=== PATIENT | male | born 1970 | race Caucasian/White ===

== ENCOUNTER 2016-12-30 13:11 | Observation (INO) | payer SELFPAY ==
[2016-12-30] MEDS ORDERED: ASPIRIN 81 MG TABLET, CHEWABLE PO ONE (13:26)
--- NOTE | 2016-12-30 13:26 | ER Document Report ---
ED Medical Screen (RME) - General Stated Complaint: CHEST PAIN Notes: 46yo male c/o left sided chest pain intermittant x 4 days. pain worse today. stabbing, nonradiating. mild shortness of breath and nausea. no previous cardiac hx, no HTN, no DM. + smoker 2ppd x 10 yrs.
[2016-12-30] MEDS ORDERED: NORMAL SALINE 1000 ML 1,000 ML IV ONE ×2 (14:11→14:54)
[2016-12-30] MEDS ORDERED: NITROGLYCERIN 2% OINTMENT 1 GM PACKET TP ONE (14:43)
--- NOTE | 2016-12-30 14:43 | ER Document Report ---
ED General - General Chief Complaint: Chest Pain Stated Complaint: CHEST PAIN TRAVEL OUTSIDE OF THE [place] IN LAST 30 DAYS: No - HPI Patient complains to provider of: chest pain Notes: Patient coming in for evaluation of chest pain. 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 Patient states left-sided chest pain no radiation nausea no vomiting. No diaphoresis. Upon evaluation the patient patient did have an episode where became very diaphoretic stated the pain has increased. Patient also became very pale then time. Repeat EKG was performed at a time. Please see force for EKG details. Initial EKG show no signs of STEMI along with second EKG. Patient otherwise states smokes 2 packs a day does smoke marijuana no other illicit drugs drinks alcohol occasionally states family history mother of heart condition at age 53 which she is unaware of. Patient denies any other past medical history does not take any medication allergies knee medication why states patient may have hypertension as that his blood pressure has been higher last few days she has been monitoring this at home. Past Medical History - Social History Smoking Status: Current Every Day Smoker Chew tobacco use (# tins/day): No Frequency of alcohol use: Occasional Drug Abuse: None Family History: Other Patient has suicidal ideation: No Patient has homicidal ideation: No Renal/ Medical History: Denies: Hx Peritoneal Dialysis - Immunizations Hx Diphtheria, Pertussis, Tetanus Vaccination: Yes Review of Systems - Review of Systems Constitutional: No symptoms reported EENT: No symptoms reported Cardiovascular: Chest pain Respiratory: No symptoms reported Gastrointestinal: No symptoms reported Genitourinary: No symptoms reported Male Genitourinary: No symptoms reported Musculoskeletal: No symptoms reported Skin: No symptoms reported Hematologic/Lymphatic: No symptoms reported Neurological/Psychological: No symptoms reported -: Yes All other systems reviewed and negative Physical Exam - Vital signs Vitals: Temp Pulse Resp BP Pulse Ox 97.5 F 97 20 162/105 H 96 12/30/16 13:25 12/30/16 13:25 12/30/16 13:25 12/30/16 13:25 12/30/16 13:25 Interpretation: Normal - General General appearance: Appears well, Alert - HEENT Head: Normocephalic, Atraumatic Eyes: Normal Pupils: PERRL - Respiratory Respiratory status: No respiratory distress Chest status: Nontender Breath sounds: Normal Chest palpation: Normal - Cardiovascular Rhythm: Regular Heart sounds: Normal auscultation Murmur: No - Abdominal Inspection: Normal Distension: No distension Bowel sounds: Normal Tenderness: Nontender Organomegaly: No organomegaly - Back Back: Normal, Nontender - Extremities General upper extremity: Normal inspection, Nontender, Normal color, Normal ROM , Normal temperature General lower extremity: Normal inspection, Nontender, Normal color, Normal ROM , Normal temperature, Normal weight bearing. No: Luc's sign - Neurological Neuro grossly intact: Yes Cognition: Normal Orientation: AAOx4 [place] Coma Scale Eye Opening: Spontaneous [place]isa Coma Scale Verbal: Oriented [place] Coma Scale Motor: Obeys Commands Delisa Coma Scale Total: 15 Speech: Normal Motor strength normal: LUE, RUE, LLE, RLE Sensory: Normal - Psychological Associated symptoms: Normal affect, Normal mood - Skin Skin Temperature: Warm Skin Moisture: Dry Skin Color: Normal Course - Re-evaluation Re-evalutation: 12/30/16 15:45 Patient coming in for chest pain. Patient did become diaphoretic by status arrival. Initial EKG did show since ST segment elevation in V2 no other reversible changes. Patient does have changes in EKG consistent with LVH. More likely this ST segment elevation in V2 is related to LVH. Repeat EKG with patient explaining worsening pain and became diaphoretic also showed no signs of STEMI. Patient had lab work chest x-ray performed no abnormality seen. Because the patient's presentation undiagnosed hypertension diaphoresis here in the ER and family history discussed with hospitalist will admit patient for chest pain rule out. - Vital Signs Vital signs: Temp Pulse Resp BP Pulse Ox 97.5 F 97 20 162/105 H 96 12/30/16 13:25 12/30/16 13:25 12/30/16 13:25 12/30/16 13:25 12/30/16 13:25 - Laboratory Result Diagrams: 12/30/16 14:35 12/30/16 14:35 Laboratory results interpreted by me: 12/30/16 14:35 Glucose 152 H Discharge - Discharge Clinical Impression: Chest pain, rule out acute myocardial infarction Condition: Good Disposition: ADMITTED OBSERVATION Admitting Provider: Hospitalist - [facility] Unit Admitted: Telemetry
[2016-12-30 14:52] LABS: ABSOLUTE BASOPHILS # (AUTO) 0.1 10^3/uL (0.0-0.2); ABSOLUTE EOSINOPHILS # (AUTO) 0.1 10^3/uL (0.0-0.6); ABSOLUTE MONOCYTES (AUTO) 0.8 10^3/uL (0.1-1.4); BASOPHILS % (AUTO) 0.9 % (0-2); EOSINOPHILS % (AUTO) 1.3 % (0-6); HEMATOCRIT 44.6 % (37.9-51.0); HEMOGLOBIN 15.5 g/dL (13.5-17.0); HGB HCT DIFFERENCE 1.9; LYMPHOCYTES % (AUTO) 30.3 % (13-45); MEAN CORPUSCULAR HEMOGLOBIN 31.1 pg (27.0-33.4); MEAN CORPUSCULAR HGB CONC 34.7 g/dL (32.0-36.0); MEAN CORPUSCULAR VOLUME 90 fl (80-97); MONOCYTES % (AUTO) 7.6 % (3-13); RED BLOOD COUNT 4.98 10^6/uL (4.35-5.55); RED CELL DISTRIBUTION WIDTH 12.4 % (11.5-14.0); SEGMENTED NEUTROPHILS % (AUTO) 59.9 % (42-78); WHITE BLOOD COUNT 10.1 10^3/uL (4.0-10.5)
[2016-12-30 15:15] LABS: ALANINE AMINOTRANSFERASE 39 U/L (21-72); ALBUMIN 3.8 g/dL (3.5-5.0); ALKALINE PHOSPHATASE 86 U/L (38-126); ANION GAP 11 (5-19); ASPARTATE AMINO TRANSFERASE 24 U/L (17-59); BILIRUBIN,TOTAL 0.7 mg/dL (0.2-1.3); BLOOD UREA NITROGEN 14 mg/dL (7-20); CALCIUM 9.5 mg/dL (8.4-10.2); CARBON DIOXIDE 23 mmol/L (22-30); CHLORIDE 106 mmol/L (98-107); CREATINE KINASE 64 U/L (55-170); CREATININE RESULT 0.83 mg/dL (0.52-1.25); GLUCOSE 152 mg/dL (75-110); LIPASE 45.3 U/L (23-300); MAGNESIUM 1.7 mg/dL (1.6-2.3); POTASSIUM 4.2 mmol/L (3.6-5.0); SODIUM 140.3 mmol/L (137-145)
[2016-12-30 15:25] LABS: CREATINE KINASE MB 0.85 ng/mL (<4.55)
[2016-12-30 15:26] LABS: TROPONIN I < 0.012 ng/mL
[2016-12-30] MEDS ORDERED: MORPHINE SULFATE 10 MG/ML INJ IV ONE (15:28)
[2016-12-30] MEDS ORDERED: ONDANSETRON HCL INJ/PF 4 MG/2 ML SDV IV ONE (15:28)
[2016-12-30] MEDS ORDERED: METOPROLOL TARTRATE PF/INJ 5 MG/5 ML SDV IV ONE (15:58)
[2016-12-30] MEDS ORDERED: ONDANSETRON HCL INJ/PF 4 MG/2 ML SDV IV PRN (16:03)
[2016-12-30] MEDS ORDERED: MAG HYDROX/AL HYDROX/SIMETH SUSP 30 ML UDCUP PO PRN (16:03)
[2016-12-30] MEDS ORDERED: MORPHINE SULFATE 10 MG/ML INJ IV PRN (16:03)
[2016-12-30] MEDS ORDERED: NITROGLYCERIN 0.4 MG/TAB 25 TAB/BOTTLE SL PRN (16:03)
[2016-12-30] MEDS ORDERED: HYDRALAZINE HCL INJ/PF 20 MG/1 ML SDV IV PRN (16:12)
--- NOTE | 2016-12-30 16:32 | PDOC H&P ---
History of Present Illness Admission Date/PCP: 12/30/2016 Patient complains of: Left-sided chest pain History of Present Illness: JUD DAWSON is a 46 year old male presents to the emergency department from work in [place] with complaints of left-sided chest pain since Wednesday. His first episode occurred [place] Wednesday and is described as sharp stabbing pain under his left breast that was somewhat improved with naproxen followed by a BC Powder but not relieved. He notes the pain is sometimes positional but denies any injury or strain in spite of the type work he does. Today it became much more intense and radiated into his left arm and neck with associated diaphoresis, dyspnea, palpitations, nausea or vomiting, lightheadedness, numbness and tingling in the tips of his toes and fingers. He gets some relief from his symptoms with sublingual nitroglycerin and was given aspirin upon his arrival in the emergency department. Evaluation shows him to be quite hypertensive with systolic pressures greater than 170 and diastolic pressures greater than 110 and as high as 130s. He still had anything like this before. He does struggle with chronic heartburn but takes nothing for it, has never sought medical attention before. Evaluation so far as been reassuring with a negative cardiac enzyme, his initial EKG showed ST change in lead V2 that resolved on repeat EKG. His chest x-ray shows no widening of the mediastinum in no acute pathologic process. His cardiac risk factors include: Apparently undiagnosed hypertension, age, gender, strong family history with the of his mother at age of 53 from some problem with her heart, heavy tobacco use with 2 pack-a-day habit and no aspirin use. We were asked to admit the patient for further evaluation and management. Past Medical History Medical History: None - But he never sought medical attention even routine screening Past Surgical History Past Surgical History: Reports: Appendectomy Social History Information Source: Patient Lives with: Family Smoking Status: Current Every Day Smoker Cigarettes Packs Per Day: 2 Frequency of Alcohol Use: Occasional - Drinks a sixpack a week Hx Recreational Drug Use: Yes Drugs: Marijuana Hx Prescription Drug Abuse: No - Advance Directive Resuscitation Status: Full Code Family History Family History: CAD, Other Parental Family History Reviewed: Yes Children Family History Reviewed: Yes Sibling(s) Family History Reviewed.: Yes Medication/Allergy Home Medications: No Home Medications 12/30/16 Allergies/Adverse Reactions: No Known Allergies Allergy (Unverified 12/30/16 16:21) Review of Systems Constitutional: ABSENT: chills, fever(s), headache(s), weight gain, weight loss Eyes: ABSENT: visual disturbances Ears: ABSENT: hearing changes Cardiovascular: PRESENT: as per HPI, chest pain, palpitations. ABSENT: dyspnea on exertion, edema, orthropnea Respiratory: PRESENT: dyspnea. ABSENT: cough, hemoptysis Gastrointestinal: PRESENT: heartburn, nausea, vomiting. ABSENT: abdominal pain , constipation, diarrhea, hematemesis, hematochezia Genitourinary: ABSENT: dysuria, hematuria Musculoskeletal: ABSENT: joint swelling Integumentary: ABSENT: rash, wounds Neurological: PRESENT: dizziness, paresthesias. ABSENT: abnormal gait, abnormal speech, confusion, focal weakness, syncope Psychiatric: ABSENT: anxiety, depression Endocrine: ABSENT: cold intolerance, heat intolerance, polydipsia, polyuria Hematologic/Lymphatic: ABSENT: easy bleeding, easy bruising Physical Exam Vital Signs: Temp Pulse Resp BP Pulse Ox 97.5 F 97 20 162/105 H 96 12/30/16 13:25 12/30/16 13:25 12/30/16 13:25 12/30/16 13:25 12/30/16 13:25 PHYSICAL EXAM GENERAL: NAD; well developed, well nourished; mild obese; alert and oriented to person, place, time, situation HEENT: normocephalic, atraumatic; EOMI, PERRLA, no conjunctival injection, no scleral icterus; oral mucosa dry, neck supple, no LAD, normal ROM; thyroid not enlarged RESPIRATORY: no accessory muscle use, no increased WOB, good air entry bilaterally; no wheezes, rales, rhonchi; no inspiratory crackles CARDIO: no JVD; RRR; no systolic murmur; no tachycardia VASCULAR: no carotid bruit; no abdominal bruit; no pallor; 2+ radial, DP pulse ; normal capillary refill GI: soft; nondistended; normal bowel sounds; no hepato spleno megaly; no rebound, rigidity, guarding; nontender NEURO: normal patella reflexes; normal sensation; normal motor function; MSK: 5/5 strength; normal ROM hips; ambulatory without assistance; no tenderness EXTREMITIES: no calf tender; no palpable cords in calf; no clubbing, cyanosis , pedal edema PSYCH: normal affect, normal mood SKIN: warm; moist; no petechiae; no telengectasias; no jaundice; no rash Results Laboratory Results: 12/30/16 14:35 12/30/16 14:35 12/30/16 12/30/16 14:35 14:35 WBC 10.1 RBC 4.98 Hgb 15.5 Hct 44.6 MCV 90 MCH 31.1 MCHC 34.7 RDW 12.4 Plt Count 240 Seg Neutrophils % 59.9 Lymphocytes % 30.3 Monocytes % 7.6 Eosinophils % 1.3 Basophils % 0.9 Absolute Neutrophils 6.0 Absolute Lymphocytes 3.0 Absolute Monocytes 0.8 Absolute Eosinophils 0.1 Absolute Basophils 0.1 Sodium 140.3 Potassium 4.2 Chloride 106 Carbon Dioxide 23 Anion Gap 11 BUN 14 Creatinine 0.83 Est GFR ( Amer) > 60 Est GFR (Non-Af Amer) > 60 Glucose 152 H Calcium 9.5 Magnesium 1.7 Total Bilirubin 0.7 AST 24 ALT 39 Alkaline Phosphatase 86 Total Protein 7.0 Albumin 3.8 Lipase 45.3 12/30/16 12/30/16 14:35 14:35 Creatine Kinase 64 CK-MB (CK-2) 0.85 Troponin I < 0.012 Labs reviewed, hyperglycemia noted no significant findings. EKG Comments: EKG shows a normal sinus rhythm with a rate of 94, corrected QT interval of 426 , and ST elevation of 1 mm in lead V2 only, no Q waves no concomitant ST depression no other T-wave abnormalities. Impressions: Chest X-Ray 12/30/16 13:27 IMPRESSION: NO ACUTE RADIOGRAPHIC FINDING IN THE CHEST. Status: Image reviewed by me - I see no acute cardiopulmonary pathology including no widening of the mediastinum. Assessment & Plan - Diagnosis (1) Chest pain, rule out acute myocardial infarction Is this a current diagnosis for this admission?: YesPlan: Patient will be admitted to medical floor with telemetry for cardiac rule out with serial cardiac enzymes, repeat EKG. Assuming enzymes are negative for acute ischemia he will undergo pharmacologic stress testing in the morning given his significant risk factors and CAYETANO score of 3. Continue empiric aspirin and start empiric statin. Hold on scheduled beta eri anticipating pharmacologic stress testing in the morning. (2) Accelerated hypertension Is this a current diagnosis for this admission?: YesPlan: The low-dose Lopressor IV 1 now, given dose of morphine to alleviate the patient's persistent pain which should help as well. Start him on WINNIE inhibitor and amlodipine anticipating discharge home on those medications as well. As needed hydralazine for systolic pressures greater than 190 or diastolic pressure current 100. Check TSH in the morning and lipid panel. (3) Tobacco dependence Is this a current diagnosis for this admission?: YesPlan: Tobacco cessation counseling. Hold nicotine replacement due to severity of his hypertension. (4) Hyperglycemia Is this a current diagnosis for this admission?: YesPlan: Check hemoglobin A1c in the morning. Possibly stress related. No family history of diabetes. - Time Time Spent: 50 to 70 Minutes Medications reviewed and adjusted accordingly: Yes Anticipated discharge: Home Within: within 24 hours
[2016-12-30] MEDS: LANSOPRAZOLE 30 MG TAB.RAP.DR PO SCH (17:58)
[2016-12-30] MEDS ORDERED: LISINOPRIL 10 MG TABLET PO ONE (18:00)
[2016-12-30] MEDS ORDERED: AMLODIPINE BESYLATE 10 MG TABLET PO ONE (18:00)
--- NOTE | 2016-12-30 19:35 | PDOC CONSULTATION ---
Consultation Consult Date: 12/30/16 Attending physician:: YING DE LA CRUZ Consult reason:: Chest pain History of Present Illness Admission Date/PCP: 12/30/16 18:04 Patient complains of: Chest pain History of Present Illness: JUD DAWSON is a 46 year old male presents to the emergency department from work in [place] with complaints of left-sided chest pain since Wednesday. His [place] and is described as sharp stabbing pain under his left breast that was somewhat improved with naproxen followed by a BC Powder but not relieved. He notes the pain is sometimes positional but denies any injury or strain in spite of the type work he does. Today it became much more intense and radiated into his left arm and neck with associated diaphoresis, dyspnea, palpitations, nausea or vomiting, lightheadedness, numbness and tingling in the tips of his toes and fingers. He gets some relief from his symptoms with sublingual nitroglycerin and was given aspirin upon his arrival in the emergency department. Evaluation shows him to be quite hypertensive with systolic pressures greater than 170 and diastolic pressures greater than 110 and as high as 130s. He still had anything like this before. He does struggle with chronic heartburn but takes nothing for it, has never sought medical attention before. Evaluation so far as been reassuring with a negative cardiac enzyme, his initial EKG showed ST change in lead V2 that resolved on repeat EKG. His chest x-ray shows no widening of the mediastinum in no acute pathologic process. His cardiac risk factors include: Apparently undiagnosed hypertension, age, gender, strong family history with the of his mother at age of 53 from some problem with her heart, heavy tobacco use with 2 pack-a-day habit and no aspirin use. We were asked to admit the patient for further evaluation and management. This history was confirmed and supplemented. Patient does give history of heavy smoking. He does also give history of leg cramps when he walks. He denied any prior history of heart problems Past Medical History Cardiac Medical History: Reports: None - Patient has not seen a physician in quite some time. Past Surgical History Past Surgical History: Reports: Appendectomy Social History Information Source: Patient Lives with: Family Smoking Status: Current Every Day Smoker Cigarettes Packs Per Day: 2 Frequency of Alcohol Use: Occasional - Drinks a sixpack a week Hx Recreational Drug Use: Yes Drugs: Marijuana Hx Prescription Drug Abuse: No - Advance Directive Resuscitation Status: Full Code Surrogate healthcare decision maker:: Patient's Family History Family History: CAD - Positive for premature CAD in mother., Other Parental Family History Reviewed: Yes Children Family History Reviewed: Yes Sibling(s) Family History Reviewed.: Yes Medication/Allergy Home Medications: No Home Medications 12/30/16 Allergies/Adverse Reactions: No Known Allergies Allergy (Unverified 12/30/16 16:21) Review of Systems Review of Systems: Please see history of present illness and past medical history as wall. Constitutional: No fever or chills reported. Head : No recent chronic headaches, recent head injury. Eyes: No recent eye pain, diplopia, redness, discharge, acute visual changes. Ears: No recent chronic ear pain, acute hearing loss, ear discharge. Oral cavity: No recent ulcerations, bleeding, oral cavity discomfort. Neck: No recent acute neck pain reported. Hematologic: No recent easy bruising or bleeding or hematologic malignancy reported. Lymphatic: No recent lymphatic malignancy, chronic lymphadenopathy reported yet Cardiovascular system review: See history of present illness. Respiratory system review: No recent chronic cough, hemoptysis, blood clots in the lungs reported. Mild Shortness of breath on exertion Gastrointestinal system review: Negative for any recent acute or chronic abdominal pain, hematemesis, melena, recent change in bowel habits. Genitourinary system review: No recent acute or chronic hematuria, flank pain, UTI etc. reported. Skin system review: Negative for any recent abnormal bruising, no rash, no pruritus reported. Neurologic: No prior history of strokes, mini strokes, seizure disorder. Psychologic: No history of major psychosis or depression reported. Musculoskeletal: Minor aches and pains reported. No acute joint swelling reported. Endocrine: No recent polyuria, polydipsia, recent heat or cold intolerance. Physical Exam Vital Signs: Temp Pulse Resp BP Pulse Ox 97.5 F 97 15 138/94 H 95 12/30/16 13:25 12/30/16 13:25 12/30/16 17:50 12/30/16 17:50 12/30/16 17:50 Exam: GENERAL: well-nourished and in no acute distress. Alert and oriented x3 HEAD: Atraumatic, normocephalic. EYES: Pupils equal round and reactive to light, extraocular movements intact, sclera anicteric, conjunctiva are normal. ENT: TMs normal, nares patent, oropharynx clear without exudates. Moist mucous membranes. No oral ulcerations or bleeding gums noted NECK: supple without lymphadenopathy. Trachea is central. No cervical or axillary lymphadenopathy noted. Carotids are 2+, JVD WNL LUNGS: Respiration seems nonlabored, no significant accessory muscle action noted. Breath sounds clear to auscultation bilaterally and equal noted. No wheezes rales or rhonchi noted. No significant dullness noted on percussion. CHEST: Palpation of the chest wall shows no significant chest wall tenderness. No other significant abnormalities noted. HEART: [place] [employer], No PSH, 1/6 NARA aortic area, 1/6 king systolic murmur mitral area, no rubs, no gallops. ABDOMEN: Soft, no significant tenderness appreciated, normoactive bowel sounds. No guarding, no rebound. No rigidity noted . No masses appreciated. EXTREMITIES: Pedal pulses are 1-2+, no calf tenderness noted. No clubbing or cyanosis.trace to 1+ pedal edema noted NEUROLOGICAL: Focused neurological exam showed no significant neurologic deficit. Normal speech, no focal weakness appreciated. PSYCH: Normal mood, normal affect. Judgment and insight within normal limits. SKIN: No significant ecchymosis, rash, ulcerations or signs of pruritus noted. MUSCULOSKELETAL EXAM: No significant joint swelling noted. Results EKG Comments: Sinus rhythm, minimal ST elevation in V1 and V2 consistent with early repolarization changes. Impressions: Chest X-Ray 12/30/16 13:27 IMPRESSION: NO ACUTE RADIOGRAPHIC FINDING IN THE CHEST. Assessment & Plan - Diagnosis (1) Accelerated hypertension Is this a current diagnosis for this admission?: Yes (2) Chest pain, rule out acute myocardial infarction Is this a current diagnosis for this admission?: Yes (3) Hyperglycemia Is this a current diagnosis for this admission?: Yes (4) Tobacco dependence Is this a current diagnosis for this admission?: Yes - Notes Notes: Chest pain with some borderline EKG changes. Initial cardiac enzymes are negative. At this point will obtain a CTA of the chest to rule out other serious causes of chest pain such as pulmonary embolism, aortic dissection, ulcerations etc. recommend empiric proton pump inhibitor. Agree with cardiac enzymes. Will order a 2-D echo. Nuclear stress test already ordered. Agree with current management plans declined by the hospitalist including management of hypertension, other diagnosis listed. Hypertension: BP goal long-term should be less than 135/85. WINNIE inhibitor/ARB preferred. Hyperglycemia: We will leave management to hospitalist. Tobacco abuse: Discussed smoking cessation and benefits of smoking cessation with the patient. Patient advised on smoking cessation. - Time Time Spent: 30 to 50 Minutes - CODE STATUS was discussed, patient remains full code. Surrogate decision-maker ration's . Multiple medical problems were addressed.More than 50% of the time spent coordinating care, discussing management plans with involved caregivers. Management plans discussed with involved personnels. Medical decision making was of moderate complexity.
[2016-12-30 21:51] LABS: APPEARANCE,URINE SLIGHTLY-CLOUDY; BILIRUBIN,URINE NEGATIVE (NEGATIVE); GLUCOSE, URINE 50 mg/dL (NEGATIVE); KETONES,URINE NEGATIVE (NEGATIVE); LEUKOCYTE ESTERASE,URINE TRACE (NEGATIVE); NITRITE,URINE NEGATIVE (NEGATIVE); PROTEIN,URINE 100 mg/dL (NEGATIVE); URINE SPECIFIC GRAVITY 1.028; UROBILINOGEN,URINE NEGATIVE mg/dL (<2.0)
[2016-12-30] MEDS ORDERED: ATORVASTATIN CALCIUM 40 MG TABLET PO SCH (22:00)
[2016-12-30 22:02] LABS: URINE BARBITURATES SCREEN NEGATIVE; URINE METHADONE SCREEN NEGATIVE; URINE PHENCYCLIDINE SCREEN NEGATIVE
[2016-12-30 22:09] LABS: URINE OPIATES LOW UNCONFIRMED POSITIVE
[2016-12-30 22:16] LABS: CREATINE KINASE MB 0.76 ng/mL (<4.55)
[2016-12-30 22:19] LABS: TROPONIN I < 0.012 ng/mL
[2016-12-31 05:18] LABS: Direct HDL 29 mg/dL (>40); TRIGLYCERIDES 429 mg/dL (<150)
[2016-12-31 05:28] LABS: DIRECT LDL 102 mg/dL (<100)
[2016-12-31] MEDS: LANSOPRAZOLE 30 MG TAB.RAP.DR PO SCH (05:43)
--- NOTE | 2016-12-31 08:14 | EKG REPORT ---
SEVERITY:- NORMAL ECG - SINUS RHYTHM : Confirmed by: Amanda Adams MD 31-Dec-2016 08:13:39
--- NOTE | 2016-12-31 08:14 | EKG REPORT ---
SEVERITY:- NORMAL ECG - SINUS RHYTHM : Confirmed by: Amanda Adams MD 31-Dec-2016 08:13:45
[2016-12-31] MEDS ORDERED: KETOROLAC TROMETHAMINE INJ/PF 30 MG/1 ML SDV ONE (09:03)
[2016-12-31] MEDS ORDERED: LISINOPRIL 10 MG TABLET PO SCH (10:00)
[2016-12-31] MEDS ORDERED: NITROGLYCERIN 5 MG (0.2 MG/HR) PATCH.TD24 TD SCH (10:00)
[2016-12-31] MEDS ORDERED: MAG HYDROX/AL HYDROX/SIMETH SUSP 30 ML UDCUP PO ONE (10:00)
[2016-12-31] MEDS ORDERED: METOCLOPRAMIDE HCL ORAL SOLN 10 MG/10 ML UDCUP PO ONE (10:00)
[2016-12-31] MEDS ORDERED: ASPIRIN 81 MG TABLET, ENT COATED PO SCH (10:00)
[2016-12-31] MEDS ORDERED: KETOROLAC TROMETHAMINE INJ/PF 30 MG/1 ML SDV IV ONE (10:00)
[2016-12-31] MEDS ORDERED: AMLODIPINE BESYLATE 10 MG TABLET PO SCH (10:00)
[2016-12-31] MEDS ORDERED: LIDOCAINE 2% VISCOUS SOLN 20 ML UDCUP PO ONE (10:00)
[2016-12-31] MEDS ORDERED: NITROGLYCERIN 0.4 MG/TAB 25 TAB/BOTTLE ONE (12:00)
--- NOTE | 2016-12-31 12:16 | XCELERA REPORT ---
[address] [address] Transthoracic Echocardiogram Report Name: JUD DAWSON Age: 46 yrs Gender: Male : 1970 Patient Status: Inpatient Patient Location: 5\S\533\S\A Study Date: 12/31/2016 08:57 AM Height: 72 in Weight: 198 lb BSA: 2.1 m2 Procedure: A complete two-dimensional transthoracic echocardiogram was performed (2D, M-mode, spectral and color flow Doppler). The study was technically adequate with some images being suboptimal in quality. Reason For Study: chest pain Ordering Physician: NATHAN BARCLAY Performed By: Ann-Marie May Interpretation Summary The left ventricular ejection fraction is normal. Doppler measurements suggest normal left ventricular diastolic function There is borderline concentric left ventricular hypertrophy. The left ventricle is grossly normal size. No regional wall motion abnormalities noted. The right ventricular systolic function is normal. The right atrium is normal. The left atrial size is normal. There is no mitral valve stenosis. There is no mitral regurgitation noted. There is no aortic valve stenosis No aortic regurgitation is present. There is no tricuspid stenosis. There is a trace amount of tricuspid regurgitation Tricuspid regurgitation jet envelope not well defined to measure RV systolic pressure accurately. The aortic root is not well visualized but is probably normal size. The inferior vena cava appeared normal and decreased > 50% with respiration (RAP 5-10 mmHg) There is no pericardial effusion. MMode/2D Measurements \T\ Calculations RVDd: 3.5 cm LVIDd: 4.4 cm FS: 37.5 % Ao root diam: 3.1 cm IVSd: 1.0 cm LVIDs: 2.8 cm EDV(Teich): 88.1 ml LVPWd: 0.97 cm ESV(Teich): 28.5 ml Ao root area: 7.8 cm2 EF(Teich): 67.7 % LA dimension: 3.5 cm Doppler Measurements \T\ Calculations MV E max justen: MV P1/2t max justen: Ao V2 max: LV V1 max P.6 cm/sec 65.9 cm/sec 128.0 cm/sec 6.1 mmHg MV A max justen: MV P1/2t: 66.1 msec Ao max PG: LV V1 max: 53.6 cm/sec 6.6 mmHg 123.4 cm/sec MV E/A: 1.2 MVA(P1/2t): 3.3 cm2 MV dec slope: 292.0 cm/sec2 MV dec time: 0.22 sec PA V2 max: TR max justen: 57.5 cm/sec 225.3 cm/sec PA max PG: TR max P.3 mmHg 1.3 mmHg Left Ventricle The left ventricle is grossly normal size. There is borderline concentric left ventricular hypertrophy. The left ventricular ejection fraction is normal. Doppler measurements suggest normal left ventricular diastolic function. No regional wall motion abnormalities noted. Right Ventricle The right ventricle is normal in size, thickness and function. There is normal right ventricular wall thickness. The right ventricular systolic function is normal. Atria The right atrium is normal. The left atrial size is normal. Interarterial septum not well visualized and not well dopplered. Cannot comment on ASD/PFO presence. Mitral Valve The mitral valve is grossly normal. There is no mitral valve stenosis. There is no mitral regurgitation noted. Aortic Valve The aortic valve is grossly normal. There is no aortic valve stenosis. No aortic regurgitation is present. Tricuspid Valve The tricuspid valve is not well visualized, but is grossly normal. There is no tricuspid stenosis. There is a trace amount of tricuspid regurgitation. Tricuspid regurgitation jet envelope not well defined to measure RV systolic pressure accurately. Pulmonic Valve The pulmonic valve is not well visualized. Great Vessels The aortic root is not well visualized but is probably normal size. The inferior vena cava appeared normal and decreased > 50% with respiration (RAP 5-10 mmHg). Effusions There is no pericardial effusion. : NATHAN BARCLAY > Nathan Barclay
[2016-12-31] MEDS ORDERED: ATORVASTATIN CALCIUM 40 MG TABLET PO SCH (12:19)
--- NOTE | 2016-12-31 12:26 | PDOC PROGRESS REPORT ---
Subjective Progress Note for:: 12/31/16 Subjective:: Patient continues to have chest pain. There is a positional complement to it but not always. This morning patient was having a 2-D echocardiogram performed. He was fine when he laid on his back but when he turned over on his left side, he started having chest discomfort. Patient was given IV Toradol and GI cocktail, following which he obtained some relief for about an hour and then subsequently started having chest pain again. So far 3 sets of cardiac enzymes has been negative. He is now noted to be diabetic with elevated blood sugar and glycohemoglobin. He now also noted to have hyperlipidemia. He does have significant cardiac risk factors. Physical Exam Vital Signs: Temp Pulse Resp BP Pulse Ox 97.9 F 78 20 109/77 96 12/31/16 07:57 12/31/16 07:57 12/31/16 07:57 12/31/16 07:57 12/31/16 07:57 Intake & Output 12/30/16 12/31/16 01/01/17 06:59 06:59 06:59 Intake Total 605 Output Total 400 Balance 205 Weight 90.2 kg Exam: GENERAL: well-nourished and in no acute distress. Alert and oriented x3 HEAD: Atraumatic, normocephalic. EYES: Pupils equal round and reactive to light, extraocular movements intact, sclera anicteric, conjunctiva are normal. ENT: TMs normal, nares patent, oropharynx clear without exudates. Moist mucous membranes. No oral ulcerations or bleeding gums noted NECK: supple without lymphadenopathy. Trachea is central. No cervical or axillary lymphadenopathy noted. Carotids are 2+, JVD WNL LUNGS: Respiration seems nonlabored, no significant accessory muscle action noted. Breath sounds clear to auscultation bilaterally and equal noted. No wheezes rales or rhonchi noted. No significant dullness noted on percussion. CHEST: Palpation of the chest wall shows no significant chest wall tenderness. No other significant abnormalities noted. HEART: [place] [employer], No PSH, 1/6 NARA aortic area, 1/6 king systolic murmur mitral area, no rubs, no gallops. ABDOMEN: Soft, no significant tenderness appreciated, normoactive bowel sounds. No guarding, no rebound. No rigidity noted . No masses appreciated. EXTREMITIES: Pedal pulses are 1-2+, no calf tenderness noted. No clubbing or cyanosis.trace to 1+ pedal edema noted NEUROLOGICAL: Focused neurological exam showed no significant neurologic deficit. Normal speech, no focal weakness appreciated. PSYCH: Normal mood, normal affect. Judgment and insight within normal limits. SKIN: No significant ecchymosis, rash, ulcerations or signs of pruritus noted. MUSCULOSKELETAL EXAM: No significant joint swelling noted. Results Laboratory Results: 12/30/16 12/31/16 12/31/16 21:20 04:48 04:48 Triglycerides 429 H Cholesterol 212.90 H LDL Cholesterol Direct 102 H VLDL Cholesterol UNABLE TO CALCULATE HDL Cholesterol 29 L TSH 1.90 Urine Color YELLOW Urine Appearance SLIGHTLY-CLOUDY Urine pH 5.0 Ur Specific [place] 1.028 Urine Protein 100 H Urine Glucose (UA) 50 H Urine Ketones NEGATIVE Urine Blood NEGATIVE Urine Nitrite NEGATIVE Ur Leukocyte Esterase TRACE H Urine WBC (Auto) 1 Urine RBC (Auto) 1 12/30/16 12/31/16 21:30 10:19 CK-MB (CK-2) 0.76 Troponin I < 0.012 < 0.012 EKG Comments: EKG this morning shows minimal ST elevation in V1 and V2 consistent with early repolarization changes. No other acute ST segment changes noted Impressions: Chest X-Ray 12/30/16 13:27 IMPRESSION: NO ACUTE RADIOGRAPHIC FINDING IN THE CHEST. Chest/Abdomen CTA 12/30/16 19:32 IMPRESSION: 1. NORMAL CTA OF THE CHEST. NO PULMONARY EMBOLI. 2. BULLOUS EMPHYSEMA WITH SCARRING. IRREGULAR DENSITIES IN THE RIGHT LUNG ARE PROBABLY DUE TO SCARRING AND/OR ATELECTASIS. PNEUMONIA CANNOT BE EXCLUDED. Assessment & Plan - Diagnosis (1) Chest pain, rule out acute myocardial infarction Is this a current diagnosis for this admission?: Yes (2) Tobacco dependence Is this a current diagnosis for this admission?: Yes (3) Diabetes Qualifiers: Diabetes mellitus type: type 2 Diabetes mellitus complication status: with unspecified complications Is this a current diagnosis for this admission?: Yes (4) Dyslipidemia Is this a current diagnosis for this admission?: Yes (5) Hypertension Qualifiers: Hypertension type: essential hypertension Qualified Code(s): I10 - Essential (primary) hypertension Is this a current diagnosis for this admission?: Yes (6) Diabetes Qualifiers: Diabetes mellitus type: type 2 Diabetes mellitus complication status: without complication - Notes Notes: Chest pain: Patient did have rest injection for imaging performed but never came down for rest imaging. It seems that each time they called for him he was having active chest pain. There are multiple differential diagnosis. Including unstable angina, noncardiac chest pain, distal esophagitis, pericarditis. Patient does not clearly fit in any of these categories. Based on his risk factor profile, there is at least a intermediate likelihood of him having underlying CAD and this could be causing his chest pain. If it cannot relieve his chest pain, it may be worthwhile to send him to tertiary care for heart catheterization. We could also empirically treat him for both musculoskeletal pain, acid reflux/esophagitis etc. Patient has been told to stop smoking. Diabetes type II: Patient has elevated glycohemoglobin and glucose. Patient will benefit from therapy for diabetes. We will leave management plans to equity trader. Dyslipidemia: Recommend statin therapy. Recommend Lipitor 40 mg by mouth daily at bedtime. Tobacco abuse: Patient has been advised about tobacco cessation. COPD: This diagnosis was made based on CT scan. Patient will benefit from smoking cessation, bronchodilator therapy etc. Hypertension: Blood pressure under better control. Hyperglycemia: Patient now noted to have diabetes. - Time Time with patient: Greater than 35 minutes - 2-D echo results were reviewed. It showed normal LVEF. No significant valvular abnormalities noted. Medications reviewed and adjusted accordingly: Yes
[2016-12-31] MEDS ORDERED: ENOXAPARIN SODIUM INJ 100 MG/1 ML DISP.SYRIN SUBCUT SCH ×2 (12:30→22:00)
[2016-12-31 12:53] VITALS: BP 122/71
--- NOTE | 2016-12-31 13:04 | PDOC TRANSFER SUMMARY ---
General Admission Date/PCP: 12/30/16 16:03 Transfer Date: 12/31/16 Accepting Facility: [facility] Accepting Physician: DR JACOB Resuscitation Status: Full Code - Transfer Diagnosis (1) Unstable angina Is this a current diagnosis for this admission?: YesDiagnosis Summary: The patient ruled out for acute cardiac ischemia with 3 sets of negative enzymes , his echocardiogram shows no wall motion abnormalities and no significant valvular abnormalities, his EKG on presentation however showed borderline ST elevation in V1 with a millimeter of ST elevation in V2 by my interpretation which improved after treatment of his significant hypertension using transdermal mitral), IV Lopressor, oral amlodipine and lisinopril. Unfortunately the patient continues to have intermittent chest pain often while at rest and significantly worse with exertion. We were unable to perform stress testing as a result. I attempted walking in the hallway and he made it approximately 50 feet before intense worsening of his left-sided chest pain, diaphoresis and shortness of breath resulted. He was returned to bed and given a sublingual nitroglycerin and over the course of several minutes his pain resolved. Telemetry monitoring did not show any ST segment changes during this episode. His CAYETANO score is 4 and clearly meets the criteria for unstable angina, as a result I spoke with Dr. Jacob at [facility] who agreed to accept him in transfer for invasive cardiac evaluation. At the time of this dictation the patient is hemodynamic stable for transfer. The patient was started on full dose Lovenox, given Plavix 75 mg daily first dose now, continue on aspirin 325 mg daily, amlodipine was discontinued and he was started on Toprol 25 mg twice a day and Nitro-Dur 0.2 mg was placed on his chest prior to transfer. (2) Accelerated hypertension Is this a current diagnosis for this admission?: YesDiagnosis Summary: Pressures were markedly elevated on presentation greater than 170 systolic pressures in greater than 120 diastolic pressures. Those have improved with treatment. (3) Tobacco dependence Is this a current diagnosis for this admission?: YesDiagnosis Summary: He is a 2 pack per day smoker and with this event now seems receptive to tobacco cessation. No nicotine replacement therapy due to the significant hypertension on presentation. (4) Diabetes Is this a current diagnosis for this admission?: YesDiagnosis Summary: He was noted to be hyperglycemic on presentation at 152, initially thought perhaps reactionary to the stress however hemoglobin A1c was 9.4 confirming undiagnosed diabetes. He will need diabetic education and home regimen at discharge. (5) Dyslipidemia Is this a current diagnosis for this admission?: YesDiagnosis Summary: His triglycerides are the primary culprit here greater than 400 with total cholesterol of 212 and LDL Of 102 and HDL of only 29. He is started on high- dose statin therapy with atorvastatin at 80 mg daily at bedtime. - Transfer Medications Home Medications: No Home Medications 12/30/16 Transfer Medications: Current Medications Al Hydrox/Mg Hydrox/Simethicone (Maalox Plus Susp 30 Udcup) 30 ml PO Q4HP PRN PRN Reason: indigestion Stop: 01/29/17 16:02 Aspirin (Ecotrin 81 Mg Ec Tablet) 81 mg PO DAILY [facility] Stop: 01/30/17 09:59 Last Admin: 12/31/16 09:49 Dose: 81 mg Atorvastatin Calcium (Lipitor 40 Mg Tablet) 80 mg PO QHS [facility] Stop: 01/30/17 12:13 Clopidogrel Bisulfate (Plavix 75 Mg Tablet) 75 mg PO DAILY [place] Stop: 01/30/17 12:29 Enoxaparin Sodium (Lovenox Inj 100 Mg/1 Ml Disp.Syrin) 90 mg SUBCUT Q12 [place] Stop: 01/30/17 12:29 Hydralazine HCl (Apresoline Inj/Pf 20 Mg/1 Ml Sdv) 10 mg IV Q6HP PRN PRN Reason: hypertension Stop: 01/29/17 16:11 Lansoprazole (Prevacid 30 Mg Odt Tablet) 30 mg PO BID@0600,1700 [facility] Stop: 01/29/17 16:59 Last Admin: 12/31/16 05:43 Dose: Not Given Lisinopril (Prinivil 10 Mg Tablet) 10 mg PO DAILY [place] Stop: 01/30/17 09:59 Last Admin: 12/31/16 09:49 Dose: 10 mg Metoprolol Tartrate (Lopressor 25 Mg Tablet) 25 mg PO Q12 [place] Stop: 01/30/17 12:29 Morphine Sulfate (Morphine 10 Mg/Ml Inj) 2 mg IV Q4HP PRN PRN Reason: pain if not relieved by nitro Stop: 01/06/17 16:02 Nitroglycerin (Nitrostat 0.4 Mg (1/150 Gr) Tabs 25/Bottle) 1 tab SL Q5MP PRN PRN Reason: chest pain Stop: 01/01/17 16:04 Nitroglycerin (Nitro-Dur 5 Mg (0.2 Mg/Hr) Transdermal Patch) 1 each TD DAILY [place] Stop: 01/30/17 09:59 Last Admin: 12/31/16 11:37 Dose: 1 each Ondansetron HCl (Zofran Inj/Pf 4 Mg/2 Ml Sdv) 4 mg IV Q6HP PRN PRN Reason: FOR NAUSEA/VOMITING Stop: 01/29/17 16:02 Sodium Chloride (Saline Flush 2.5 Ml Monoject Prefil Syrin) 2.5 ml IV Q8 [place] Stop: 01/29/17 21:59 Last Admin: 12/31/16 05:43 Dose: Not Given - Allergies Allergies/Adverse Reactions: No Known Allergies Allergy (Unverified 12/30/16 16:21) - Diet/Activity Discharge Diet: Other (Comments) - He is kept nothing by mouth until evaluated by cardiology in the event they want to perform catheterization today Hospital Course Hospital Course: JUD DAWSON is a 46 year old male presents to the emergency department from work in [place] with complaints of left-sided chest pain since Wednesday. His [place] episode [place] and is described as sharp stabbing pain under his left breast that was somewhat improved with naproxen followed by a BC Powder but not relieved. He notes the pain is sometimes positional but denies any injury or strain in spite of the type work he does. Today it became much more intense and radiated into his left arm and neck with associated diaphoresis, dyspnea, palpitations, nausea or vomiting, lightheadedness, numbness and tingling in the tips of his toes and fingers. He gets some relief from his symptoms with sublingual nitroglycerin and was given aspirin upon his arrival in the emergency department. Evaluation shows him to be quite hypertensive with systolic pressures greater than 170 and diastolic pressures greater than 110 and as high as 130s. He still had anything like this before. He does struggle with chronic heartburn but takes nothing for it, has never sought medical attention before. Evaluation so far as been reassuring with a negative cardiac enzyme, his initial EKG showed ST change in lead V2 that resolved on repeat EKG. His chest x-ray shows no widening of the mediastinum in no acute pathologic process. His cardiac risk factors include: Apparently undiagnosed hypertension, age, gender, strong family history with the of his mother at age of 53 from some problem with her heart, heavy tobacco use with 2 pack-a-day habit and no aspirin use. We were asked to admit the patient for further evaluation and management. The patient ruled out for acute cardiac ischemia with 3 sets of negative enzymes , his echocardiogram shows no wall motion abnormalities and no significant valvular abnormalities, his EKG on presentation however showed borderline ST elevation in V1 with a millimeter of ST elevation in V2 by my interpretation which improved after treatment of his significant hypertension using transdermal mitral), IV Lopressor, oral amlodipine and lisinopril. Unfortunately the patient continues to have intermittent chest pain often while at rest and significantly worse with exertion. We were unable to perform stress testing as a result. I attempted walking in the hallway and he made it approximately 50 feet before intense worsening of his left-sided chest pain, diaphoresis and shortness of breath resulted. He was returned to bed and given a sublingual nitroglycerin and over the course of several minutes his pain resolved. Telemetry monitoring did not show any ST segment changes during this episode. His CAYETANO score is 4 and clearly meets the criteria for unstable angina, as a result I spoke with Dr. Jacob at [facility] who agreed to accept him in transfer for invasive cardiac evaluation. At the time of this dictation the patient is hemodynamic stable for transfer. The patient was started on full dose Lovenox, given Plavix 75 mg daily first dose now, continue on aspirin 325 mg daily, amlodipine was discontinued and he was started on Toprol 25 mg twice a day and Nitro-Dur 0.2 mg was placed on his chest prior to transfer. Physical Exam Vital Signs: Temp Pulse Resp BP Pulse Ox 97.9 F 78 20 109/77 96 12/31/16 07:57 12/31/16 07:57 12/31/16 07:57 12/31/16 07:57 12/31/16 07:57 Intake & Output 12/30/16 12/31/16 01/01/17 06:59 06:59 06:59 Intake Total 605 Output Total 400 Balance 205 Weight 90.2 kg PHYSICAL EXAM GENERAL: NAD; well developed, well nourished; mild obese; alert and oriented to person, place, time, situation HEENT: normocephalic, atraumatic; EOMI, PERRLA, no conjunctival injection, no scleral icterus; oral mucosa dry, neck supple, no LAD, normal ROM; thyroid not enlarged RESPIRATORY: no accessory muscle use, no increased WOB, good air entry bilaterally; no wheezes, rales, rhonchi; no inspiratory crackles CARDIO: no JVD; RRR; no systolic murmur; no tachycardia VASCULAR: no carotid bruit; no abdominal bruit; no pallor; 2+ radial, DP pulse ; normal capillary refill GI: soft; nondistended; normal bowel sounds; no hepato spleno megaly; no rebound, rigidity, guarding; nontender NEURO: normal patella reflexes; normal sensation; normal motor function; MSK: 5/5 strength; normal ROM hips; ambulatory without assistance; no chest wall tenderness and his symptoms are not reproducible on manipulation of his left shoulder or confrontational muscular skeletal testing. EXTREMITIES: no calf tender; no palpable cords in calf; no clubbing, cyanosis , pedal edema PSYCH: normal affect, normal mood SKIN: warm; moist; no petechiae; no telengectasias; no jaundice; no rash Results Laboratory Results: 12/30/16 12/31/16 12/31/16 21:20 04:48 04:48 Triglycerides 429 H Cholesterol 212.90 H LDL Cholesterol Direct 102 H VLDL Cholesterol UNABLE TO CALCULATE HDL Cholesterol 29 L TSH 1.90 Urine Color YELLOW Urine Appearance SLIGHTLY-CLOUDY Urine pH 5.0 Ur Specific [place] 1.028 Urine Protein 100 H Urine Glucose (UA) 50 H Urine Ketones NEGATIVE Urine Blood NEGATIVE Urine Nitrite NEGATIVE Ur Leukocyte Esterase TRACE H Urine WBC (Auto) 1 Urine RBC (Auto) 1 12/30/16 12/31/16 21:30 10:19 CK-MB (CK-2) 0.76 Troponin I < 0.012 < 0.012 Impressions: Chest X-Ray 12/30/16 13:27 IMPRESSION: NO ACUTE RADIOGRAPHIC FINDING IN THE CHEST. Chest/Abdomen CTA 12/30/16 19:32 IMPRESSION: 1. NORMAL CTA OF THE CHEST. NO PULMONARY EMBOLI. 2. BULLOUS EMPHYSEMA WITH SCARRING. IRREGULAR DENSITIES IN THE RIGHT LUNG ARE PROBABLY DUE TO SCARRING AND/OR ATELECTASIS. PNEUMONIA CANNOT BE EXCLUDED. Plan Discharge Plan: Transfer to tertiary care center for invasive cardiac evaluation. Time Spent: Greater than 30 Minutes
[2016-12-31] MEDS ORDERED: CLOPIDOGREL BISULFATE 75 MG TABLET PO ONE (14:00)
[2016-12-31] MEDS ORDERED: METOPROLOL TARTRATE 25 MG TABLET PO ONE (14:00)
[2016-12-31] MEDS ORDERED: ENOXAPARIN SODIUM INJ 100 MG/1 ML DISP.SYRIN SUBCUT ONE (14:00)
--- NOTE | 2016-12-31 15:21 | EKG REPORT ---
SEVERITY:- ABNORMAL ECG - SINUS RHYTHM PROBABLE ANTEROSEPTAL INFARCT, OLD : Confirmed by: Amanda Adams MD 31-Dec-2016 15:20:29
[2016-12-31] MEDS ORDERED: CLOPIDOGREL BISULFATE 75 MG TABLET PO SCH (22:00)
[2016-12-31] MEDS ORDERED: METOPROLOL TARTRATE 25 MG TABLET PO SCH (22:00)
== END 2016-12-31 14:41 | disposition short-term general hospital (02) ==
LOC: ER 13:11 → EH 16:03 → UNDOADMOB 18:04 → 5 20:15
PROVIDERS: ADMIT Family Medicine; ATTEND Family Medicine
PROC: 3E0337Z Introduction of Electrolytic and Water Balance Substance into Peripheral Vein, Percutaneous Approach (ICD-10-PCS; principal; 2016-12-30)
PROC: 3E033GC Introduction of Other Therapeutic Substance into Peripheral Vein, Percutaneous Approach (ICD-10-PCS; 2016-12-30)
PROC: 3E033GC Introduction of Other Therapeutic Substance into Peripheral Vein, Percutaneous Approach (ICD-10-PCS; 2016-12-30)
DX: I20.0 Unstable angina (principal); I10 Essential (primary) hypertension; E11.65 Type 2 diabetes mellitus with hyperglycemia; E78.5 Hyperlipidemia, unspecified; F17.210 Nicotine dependence, cigarettes, uncomplicated
CPT/HCPCS: 93005 ×2; 99285; 96361; 96374; 96375; 36415 ×2; 82553; 82550; 83690; 83735; 84443; 85025; 80053; 81001; 84484 ×2; 80307; 83036; 85379; 80061; 93306; 71010; 71275; 93010 ×2; G0378 ×3; J3490 ×3; J1885; J2270; J2405; J7030